=== PATIENT | female | born 1950 | race African-American/Black ===

== ENCOUNTER → 2016-06-23 16:42 | Outpatient (CLI) | payer BC ==
[2016-04-20 13:54] VITALS: BMI 44.9
[~2016-06-23 16:42] MED LIST: BENICAR20 MG PO; BENZONATATE200 MG PO; BUMEX 1 MG TAB1 MG PO; CALAN SR240 MG PO; CALCIUM 500 +1 EAC3 PO; CARAFATE1 G PO; HYDROCHLOROTHIA25 MG PO; IPRAT-ALBUT 0.5-3 ML INH; IPRAT-ALBUT 0.5-3 ML UPD; K-DUR20 MEQ PO; LEVAQUIN750 MG PO; MEDROL DOSE PACK4 MG PO; MUCINEX DM ER1 EAC1 PO; OMEPRAZOLE40 MG PO; PRILOSEC20 MG PO; PROAIR HFA8.5 GM PO; PULMICORT0.5 MG/21 INH; SINGULAIR10 MG PO; SPIRIVA18 MCG INH; SYMBICORT 16010.2 GM PO; TUSSIONEX PENN473 ML PO
== END | disposition home or self-care (01) ==
LOC: D.MAMMO 08:15
DX: Z12.31 Encounter for screening mammogram for malignant neoplasm of breast (principal)

== ENCOUNTER → 2016-06-30 10:54 | Outpatient (CLI) | payer BC ==
[2016-04-20 13:54] VITALS: BMI 44.9
== END | disposition home or self-care (01) ==
LOC: D.US 10:54
DX: N63 Unspecified lump in breast (principal)

== ENCOUNTER → 2016-07-12 06:30 | Outpatient (CLI) | payer BC ==
[2016-04-20 13:54] VITALS: BMI 44.9
== END | disposition home or self-care (01) ==
LOC: D.US 06:30
DX: N63 Unspecified lump in breast (principal)

== ENCOUNTER → 2016-08-31 08:51 | Outpatient (CLI) | payer BC ==
[2016-04-20 13:54] VITALS: BMI 44.9
--- NOTE | ~2016-08-31 | EC ---
PATIENT:TEJA MUHAMMAD DATE OF SERVICE: 08/31/16 SEX: F MEDICAL RECORD: [id number] DATE OF : 50 LOCATION:D.[facility] AGE OF PATIENT: 65 ADMISSION DATE: 08/31/16 REFERRING PHYSICIAN: INTERPRETING PHYSICIAN: GUSTAVO HERRERA M.D. ECHOCARDIOGRAM REPORT ECHO CHARGES 4 ECHO COMPLETE CLINICAL DIAGNOSIS: BREAST CANCER/PRE CHEMOTHERAPY ECHOCARDIOGRAPHIC MEASUREMENTS (adult normal given) AC root (d.<3.7cm) 3.0 LV Septum d (<1.2 cm> 1.4 Valve Excursion 2.0 LV Septum (systole) 2.0 Left Atria (s.<4.0cm> 4.2 LVPW d(<1.2cm) 1.3 RV (d.<2.3cm) 3.1 LVPW (sytole) 2.2 LV diastole(<5.6CM) 6.6 MV E-F(>70mm/sec) LV systole 3.8 LVOT Diameter 1.7 MV exc.(>10mm) Est.ejection fraction (50-75%) Pericardial Effusion N DOPPLER: LVIT A 65.0 E 48.0 LA RVSP 44.2 LVOT 120 AOP1/2T Asc. Ao 191 RVOT 65.0 RA PA 95.0 AV Gradient Peak 15.0 AV Mean 8.2 AV Area 1.4 MV Gradient Peak 3.6 MV Mean 1.1 MV Area COMMENTS: Monument Erector: Bandar FERNÁNDEZ Director Of Nurses Registry:2 Dr. Herrera TAPE# PACS DATE OF SERVICE: 08/31/2016 REFERRING PHYSICIAN: Gustavo Sanz MD INDICATION: Breast cancer, assess LV function prior to chemotherapy. DESCRIPTION: Left ventricle is mildly dilated. Left ventricular hypertrophy is present. However, systolic function is well preserved. Estimated ejection fraction is in the order 60%. Mitral valve is structurally normal. I do not see any regurgitation or prolapse. Left atrium is mildly dilated. The aortic ECHOCARDIOGRAM REPORT [id number] TEJA MUHAMMAD valve is trileaflet. There is no stenosis or regurgitation seen. Right ventricle is mildly dilated. Tricuspid valve is structurally normal. There is no regurgitation noted. Right atrium is normal in size. There is no pericardial effusion seen. IMPRESSION: 1. Left ventricular hypertrophy with preserved ejection fraction of 60%. 2. No valvular abnormalities are noted. TRANSINT:[id number] Voice Confirmation ID: [id number] DOCUMENT ID: [id number] GUSTAVO HERRERA M.D. CC: [id number] DICTATION DATE: 09/01/16729 FIELD SALES REPRESENTATIVE: 09/01/16 1329 DEP CLI 08/31/16 [place] [id number] [place] [id number]
== END | disposition home or self-care (01) ==
LOC: D.ECHO 08:51
DX: C50.919 Malignant neoplasm of unspecified site of unspecified female breast (principal)

== ENCOUNTER 2016-09-12 08:55 | Outpatient (CLI) | payer BC ==
[~2016-09-12] VITALS: Ht 172.7 cm; Wt 129.1 kg
[2016-09-12 09:37] LABS: HEMATOCRIT 42.4 % (36.0-48.0); HEMOGLOBIN 13.6 g/dL (12-16); MCH 29.6 pg (26.0-34.0); MCHC 32.1 g/dL (31.0-37.0); MCV 92.4 fL (80.0-100.0); MEAN PLATELET VOLUME 10.6 fL (7.4-10.4); PLATELET COUNT 115 10x3/uL (130-400); RBC 4.59 10x6/uL (4.00-5.40); WBC 27.6 10x3/uL (4.8-10.8)
[2016-09-12] MEDS ORDERED: ATIVAN0.5 MG PO (09:38)
[2016-09-12] MEDS ORDERED: DECADRON4 MG PO (09:39)
[2016-09-12] MEDS ORDERED: ZOFRAN ODT4 MG/UDTAB PO (09:40)
[2016-09-12 09:47] VITALS: BP 143/80; Ht 172.7 cm; Wt 129.1 kg
[2016-09-12 09:54] LABS: APTT 21.6 SECONDS (22.8-39.4); INR 1.03 (0.85-1.17); PROTIME 13.4 SECONDS (11.6-15.0)
--- NOTE | 2016-09-12 10:00 | NUR ---
#20X1 INCH POLK NEEDLE PLACED PER JAMI ROLLE RN. IV OF 1/2NS STARTED.
[2016-09-12 10:10] LABS: ANION GAP 11.8 mmol/L (8-16); CALCIUM 8.5 mg/dL (8.5-10.1); CARBON DIOXIDE 29.4 mmol/L (21.0-32.0); CREATININE - SERUM 0.9 mg/dL (0.6-1.3); POTASSIUM - SERUM 3.2 mmol/L (3.5-5.1)
[2016-09-12 10:28] LABS: EOSINOPHILS 1 % (0-7); LYMPHOCYTES 9 % (15-50); MONOCYTES 2 % (2-11); NEUTROPHILS 82 % (40-80); PLATELET ESTIMATE DECREASED
== END 2016-09-12 15:10 | disposition home or self-care (01) ==
LOC: D.OPS 08:55 → D.CT 11:00 → D.OPS 11:00 → D.CT 13:00 → D.OPS 15:10
PROVIDERS: General Practice
DX: C50.312 Malignant neoplasm of lower-inner quadrant of left female breast (principal); I10 Essential (primary) hypertension; J45.909 Unspecified asthma, uncomplicated; Z01.812 Encounter for preprocedural laboratory examination

== ENCOUNTER 2016-12-03 11:25 | Emergency (ER) | payer BC ==
[2016-09-12 09:47] VITALS: BMI 43.2
[~2016-12-03 11:25] MED LIST changes: +ATIVAN0.5 MG PO; +DECADRON4 MG PO; +ZOFRAN ODT4 MG/UDTAB PO
[2016-12-03 12:27] LABS: HEMATOCRIT 32.4 % (36.0-48.0); HEMOGLOBIN 10.7 g/dL (12-16); IMMATURE GRANULOCYTES 0.5 % (0-5); MCH 31.2 pg (26.0-34.0); MCV 94.5 fL (80.0-100.0); MEAN PLATELET VOLUME 9.4 fL (7.4-10.4); PLATELET COUNT 81 10x3/uL (130-400); RBC 3.43 10x6/uL (4.00-5.40); RDW 18.8 % (11.5-14.5); WBC 2.2 10x3/uL (4.8-10.8)
[2016-12-03 12:37] LABS: ALBUMIN 3.5 g/dL (3.4-5.0); ALKALINE PHOSPHATASE 56 U/L (46-116); ALT (SGPT) 29 U/L (10-68); BILIRUBIN - TOTAL 0.91 mg/dL (0.2-1.3); CALC OSMOLALITY 279 mosm/kg (275-300); CARBON DIOXIDE 27.8 mmol/L (21.0-32.0); CHLORIDE - SERUM 106 mmol/L (98-107); CREATININE - SERUM 0.8 mg/dL (0.6-1.3); GLUCOSE 84 mg/dL (74-106); POTASSIUM - SERUM 3.8 mmol/L (3.5-5.1); PROTEIN - SERUM 6.3 g/dL (6.4-8.2); SODIUM 139 mmol/L (136-145); UREA NITROGEN 20 mg/dL (7-18); eGFR NON AFRICAN AMERICAN 76 mL/min (90-120)
[2016-12-03 12:43] LABS: MAGNESIUM - SERUM 1.9 mg/dL (1.8-2.4); PRO BNP 113 pg/mL (0-125)
[2016-12-03 12:46] LABS: BASOPHILS 1 % (0-2); LYMPHOCYTES 26 % (15-50); MONOCYTES 1 % (2-11); NEUTROPHILS 72 % (40-80); PLATELET ESTIMATE DECREASED
== END 2016-12-03 13:55 | disposition home or self-care (01) ==
LOC: D.ER 11:25
PROVIDERS: Emergency Medicine
DX: R53.1 Weakness (principal); J45.909 Unspecified asthma, uncomplicated; C50.919 Malignant neoplasm of unspecified site of unspecified female breast; R19.7 Diarrhea, unspecified

== ENCOUNTER 2017-02-15 03:55 | Emergency (ER) | payer BC ==
[2016-09-12 09:47] VITALS: BMI 43.2
[2017-02-15 04:27] LABS: BASOPHILS 0.2 % (0-2); EOSINOPHILS 0 % (0-7); HEMATOCRIT 35.7 % (36.0-48.0); HEMOGLOBIN 11.8 g/dL (12-16); IMMATURE GRANULOCYTES 2.6 % (0-5); MCH 33.5 pg (26.0-34.0); MCHC 33.1 g/dL (31.0-37.0); MCV 101.4 fL (80.0-100.0); MEAN PLATELET VOLUME 9.4 fL (7.4-10.4); MONOCYTES 13.4 % (2-11); NEUTROPHILS 72.8 % (40-80); PLATELET COUNT 111 10x3/uL (130-400); RBC 3.52 10x6/uL (4.00-5.40); RDW 14.8 % (11.5-14.5); WBC 4.6 10x3/uL (4.8-10.8)
[2017-02-15 04:40] LABS: ALBUMIN 3.4 g/dL (3.4-5.0); ANION GAP 13.9 mmol/L (8-16); BILIRUBIN - TOTAL 0.9 mg/dL (0.2-1.3); CALCIUM 8.9 mg/dL (8.5-10.1); CARBON DIOXIDE 26.8 mmol/L (21.0-32.0); CREATININE - SERUM 1.2 mg/dL (0.6-1.3); MAGNESIUM - SERUM 1.2 mg/dL (1.8-2.4); POTASSIUM - SERUM 3.7 mmol/L (3.5-5.1); PROTEIN - SERUM 6.4 g/dL (6.4-8.2)
[2017-02-15 05:04] LABS: TROPONIN-I 0.055 ng/mL (0.000-0.060)
[2017-02-15 06:28] LABS: APPEARANCE CLEAR (CLEAR); BACTERIA FEW /hpf (NONE SEEN); BILIRUBIN NEGATIVE (NEGATIVE); COLOR YELLOW (YELLOW); EPITHELIAL CELLS 0-5 /hpf (0-5); GLUCOSE NEGATIVE (NEGATIVE); KETONE NEGATIVE (NEGATIVE); MUCUS <1+ /lpf (NONE SEEN); NITRITE NEGATIVE (NEGATIVE); PROTEIN NEGATIVE (NEGATIVE); RED CELLS - URINE RARE /hpf (0-5); SPECIFIC GRAVITY 1.005 (1.005-1.020)
== END 2017-02-15 09:25 | disposition home or self-care (01) ==
LOC: D.ER 03:55
PROVIDERS: Emergency Medicine
DX: R53.1 Weakness (principal); C50.912 Malignant neoplasm of unspecified site of left female breast; E83.42 Hypomagnesemia

== ENCOUNTER → 2017-02-17 10:52 | Outpatient (CLI) | payer BC ==
[2016-09-12 09:47] VITALS: BMI 43.2
[~2017-02-17 10:52] MED LIST changes: +[UNRECOGNIZED DRUG - OTHER]
== END | disposition home or self-care (01) ==
LOC: D.MRI 10:52
DX: C50.312 Malignant neoplasm of lower-inner quadrant of left female breast (principal)

== ENCOUNTER → 2017-02-20 09:07 | Outpatient (CLI) | payer BC ==
[2016-09-12 09:47] VITALS: BMI 43.2
== END | disposition home or self-care (01) ==
LOC: D.US 09:07
DX: R22.41 Localized swelling, mass and lump, right lower limb (principal); M79.604 Pain in right leg

== ENCOUNTER 2017-03-27 07:08 | Day surgery (SDC) | payer BC ==
[~2017-03-27] VITALS: Ht 172.7 cm; Wt 119.1 kg
[~2017-03-27 07:08] MED LIST changes: -[UNRECOGNIZED DRUG - OTHER]
[2017-03-27 07:57] LABS: ANION GAP 11.7 mmol/L (8-16); CALCIUM 8.4 mg/dL (8.5-10.1); CARBON DIOXIDE 26.6 mmol/L (21.0-32.0); CREATININE - SERUM 0.9 mg/dL (0.6-1.3); POTASSIUM - SERUM 3.3 mmol/L (3.5-5.1)
[2017-03-27] MEDS ORDERED: [UNRECOGNIZED DRUG - OTHER] (08:03)
[2017-03-27 08:10] LABS: HEMATOCRIT 37.9 % (36.0-48.0); HEMOGLOBIN 12.5 g/dL (12-16); MCH 32.6 pg (26.0-34.0); MEAN PLATELET VOLUME 9.7 fL (7.4-10.4); RBC 3.83 10x6/uL (4.00-5.40); RDW 15.8 % (11.5-14.5)
[2017-03-27 08:12] VITALS: BP 140/83; Ht 172.7 cm; Wt 119.1 kg
--- NOTE | 2017-03-27 09:35 | NUR ---
PT REC'D TO ROOM VIA STRETCHER. AWAKE, ALERT, ORIENTED.
--- NOTE | 2017-03-27 09:49 | NUR ---
TOLERATING FULL LIQUIDS.
--- NOTE | 2017-03-27 10:05 | NUR ---
IV D/C'D CATH INTACT.
--- NOTE | 2017-03-27 10:14 | NUR ---
D/C INSTRUCTIONS EXPLAINED TO PT. VOICED UNDERSTANDING. COPIES OF ALL GIVEN TO PT.
--- NOTE | 2017-03-27 10:20 | NUR ---
D/C'D HOME VIA W/C TO PRIVATE CAR.
--- NOTE | 2017-03-27 13:28 | OP ---
PATIENT NAME: TEJA MUHAMMAD MEDICAL RECORD: [id number] :50 LOCATION:[facility] ADMISSION DATE: SURGEON: SHELLI HERNANDEZ DO DATE OF OPERATION: 03/27/2017 PROCEDURE: Colonoscopy with polypectomy. INDICATIONS FOR PROCEDURE: Colon cancer screening. SCOPE: Olympus video pediatric colonoscope. MEDICATIONS: Propofol 450 mg IV per anesthesia. WITHDRAWAL TIME: 14 minutes. ESTIMATED BLOOD LOSS: Minimal. COMPLICATIONS: None. FINDINGS: Informed consent was given. The patient was made comfortable with the above medication. After reaching an adequate level of sedation by slow IV push, the patient was placed on her left side. A digital rectal examination was performed and was normal. The endoscope was then advanced under direct visualization through the rectum to the terminal ileum. The scope was slowly withdrawn and the mucosa was carefully examined. There was evidence of mild diverticulosis mainly involving the sigmoid and descending colon with a few scattered diverticula noted throughout the entire colon. There were 2 polyps visualized on today's examination. The first was located in the cecum. It measured approximately 2-3 mm in diameter and was removed using a hot forceps completely in 1 piece. The second polyp was located in the descending colon. It was benign appearing sessile polyp measuring approximately 4 mm in diameter. It was removed using a hot forceps in 1 piece and completely retrieved. Retroflexion was performed in the rectum with a normal appearing rectal wall. The endoscope was then withdrawn from the patient. The patient tolerated the procedure well and there were no complications. IMPRESSION: 1. Two polyps as described above removed using hot forceps. 2. Mild diverticulosis. PLAN AND RECOMMENDATIONS: 1. Discharge home when recovery parameters are met. 2. High fiber diet. 3. Continue current medications. 4. Recall colonoscopy in 5 years for continued surveillance and colorectal cancer screening. TRANSINT:[id number] Voice Confirmation ID: [id number] DOCUMENT ID: [id number] OPERATIVE REPORT [id number] TEJA MUHAMMAD SHELLI HERNANDEZ DO at 1328 CC: [id number] DICTATION DATE: 03/27/17 0924 ASSET CARD CLERK: 03/27/[address] [facility] 03/27/17 [place] [address]
== END 2017-03-27 10:20 | disposition home or self-care (01) ==
LOC: D.OPS 07:08
PROVIDERS: Anesthesiology
DX: Z12.11 Encounter for screening for malignant neoplasm of colon (principal); K63.5 Polyp of colon; J45.909 Unspecified asthma, uncomplicated; I10 Essential (primary) hypertension; K21.9 Gastro-esophageal reflux disease without esophagitis; E66.9 Obesity, unspecified; Z01.812 Encounter for preprocedural laboratory examination

== ENCOUNTER 2017-07-24 05:20 | Inpatient (IN) | payer BC ==
[~2017-07-24] VITALS: Ht 172.7 cm; Wt 122.5 kg
--- NOTE | ~2017-07-24 | HP ---
PATIENT: TEJA MUHAMMAD MEDICAL RECORD: [id number] ACCOUNT: [id number] LOCATION:D.[facility] : 50 ADMISSION DATE: 07/24/17 HISTORY AND PHYSICAL EXAMINATION REASON FOR ADMISSION: Left facial pain and swelling. HISTORY OF PRESENT ILLNESS: The patient is a 66-year-old -[place]ymra[place] female who developed onset of rapid left facial swelling and pain last evening. She states that she has had tender tooth on the left maxillary for about a year. She had put off having it removed due to chemotherapy for breast cancer. She has been a little more sore recently, was worse yesterday and then last night, she developed discomfort and pain. She refused to come to the hospital initially, but her daughter brought her to this morning. She denies fever, nausea, or vomiting. 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 First line chemo was Adriamycin and Cytoxan from August through October of 2016, 3-4 cycles, treatment changed to cisplatin and Gemzar. She states she was due to have a PET scan and chemotherapy today. PAST MEDICAL HISTORY: Essential hypertension, asthma, remote history of pneumonia in 2014. Schatzki's ring status post esophageal balloon dilatation, sliding hiatal hernia, gastritis in 2016. PAST SURGICAL HISTORY: She has had a tonsillectomy and adenoidectomy, tubal ligation, left breast biopsy. ALLERGIES: SULFA. ALCOHOL HISTORY: Negative. 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 HOME MEDICATIONS: Verapamil SR 240 a day, Benicar 20 mg a day, Prilosec 40 mg p.o. daily, calcium carbonate with vitamin D 500 mg daily, Micro-K 10 mEq b.i.d., Singulair 10 mg with evening meal, Ativan 1 mg h.s. p.r.n. anxiety, Symbicort 160 mg two puffs b.i.d., DuoNeb updrafts q.4 hours, MiraLAX 17 grams p.o. daily, Ventolin HFA 4 puffs q.4-6 hours p.r.n. breakthrough wheezing. FAMILY HISTORY: Noncontributory. REVIEW OF SYSTEMS: GENERAL: No fever, fatigue, or weight change. HEENT: No recent visual change, sinus congestion. She has had marked onset of left cheek and facial edema in the last 12 hours. She has chronic tenderness in the left upper proximal molar 1 and admits to dental caries. Denies hearing difficulty. RESPIRATORY: No severe cough recently, has chronic wheezing, but stable currently. CARDIAC: No exertional chest pain, claudication, or edema. GASTROINTESTINAL: No nausea, vomiting, solid food dysphagia. ENDOCRINE: Denies polyuria, polydipsia, heat or cold intolerance. HISTORY AND PHYSICAL [id number] TEJA MUHAMMAD NEUROLOGIC: No history of stroke, TIA, or vascular headaches. INTEGUMENT: No rash or itching. PSYCHIATRIC: Denies depressed mood. PHYSICAL EXAMINATION: GENERAL: Alert female, in no acute distress with obvious facial edema. VITAL SIGNS: Temperature 99.2 Fahrenheit orally, pulse 86 and regular, respirations 20, blood pressure 145/109 with a sat of 98% on room air. HEENT: Normocephalic. Eyes are clear, but she has left periorbital edema minimally affecting her vision. She has marked left zygomatic and basilar facial edema, nontender to touch. Slightly warm. She has adenopathy in her left anterior cervical triangle, palpable and nontender. Oropharynx exam reveals a carious left anterior maxilla #1 with surrounding gingival erythema. No obvious pustular drainage. CHEST: Clear with faint wheezes on forced expiration. HEART: Regular rate. BREAST: Not examined. ABDOMEN: Soft, mildly obese, nontender. GENITOURINARY: Deferred. EXTREMITIES: No gross CCE. NEUROLOGICAL: Oriented to person, place, and time. Cranial nerves intact. Gait was not tested. No motor or sensory deficits are appreciated grossly. LABORATORY DATA: Shows white count of 8600, H&H of 9.8 and 30.0 respectively, MCV is 104, platelets 155,000 with normal shift. Electrolytes are normal. BUN slightly elevated at 21. Liver functions are normal. CT of the face and facial bones reveals soft tissue cellulitis of the left face extending from the mandible, anterior maxilla to the left periorbital, and preseptal soft tissue areas without evidence of air fluid collection or abscess. She has left level 2 adenopathy with enlarged anterior cervical triangle lymph nodes with some necrosis. ASSESSMENT: 1. Left facial abscess, possibly due to dental caries. 2. 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 3. History of asthma. 4. Hypertension. 5. Anemia of chronic disease. PLAN: Place the patient on IV fluid. She has been cultured in the ER. Place on clindamycin. Add Rocephin. Dr. Rivas has reviewed her CT scan and says nothing from ENT needs to be offered at this time except antibiotics. Dr. Sarah will be consulted as well. Further workup pending clinical course. We will hold Byronr currently on the outside chance she has some angioedema from it and use other medicines for blood pressure control. TRANSINT:[id number] Voice Confirmation ID: [id number] DOCUMENT ID: [id number] HISTORY AND PHYSICAL [id number] TEJA MUHAMMAD TIMOTHY MD at 1751 CC: [id number] DICTATION DATE: 07/24/17 1418 ESTIMATOR AND DRAFTER SUPERVISOR: 07/24/17 1701 ADM IN [facility] [address] [place] [id number]
[~2017-07-24 05:20] MED LIST changes: +[UNRECOGNIZED DRUG - OTHER]
[2017-07-24 06:08] LABS: BASOPHILS 0.2 % (0-2); EOSINOPHILS 0.6 % (0-7); HEMOGLOBIN 9.8 g/dL (12-16); IMMATURE GRANULOCYTES 1.6 % (0-5); LYMPHOCYTES 10.2 % (15-50); MCHC 32.7 g/dL (31.0-37.0); MCV 104.2 fL (80.0-100.0); MEAN PLATELET VOLUME 9.4 fL (7.4-10.4); MONOCYTES 19.3 % (2-11); NEUTROPHILS 68.1 % (40-80); PLATELET COUNT 155 10x3/uL (130-400); RBC 2.88 10x6/uL (4.00-5.40); RDW 18.9 % (11.5-14.5); WBC 8.6 10x3/uL (4.8-10.8)
[2017-07-24 06:22] LABS: ALBUMIN 3.4 g/dL (3.4-5.0); ANION GAP 11.7 mmol/L (8-16); BILIRUBIN - TOTAL 0.78 mg/dL (0.2-1.3); C-REACTIVE PROTEIN 0.9 mg/dL (0.0-0.9); CALCIUM 8.3 mg/dL (8.5-10.1); CARBON DIOXIDE 26.1 mmol/L (21.0-32.0); CREATININE - SERUM 1.1 mg/dL (0.6-1.3); POTASSIUM - SERUM 3.8 mmol/L (3.5-5.1); PROTEIN - SERUM 6.3 g/dL (6.4-8.2)
[2017-07-24] MEDS ORDERED: MIRALAX527 GM PO (11:02)
[2017-07-24 12:03] VITALS: BP 150/81; Ht 172.7 cm; Wt 122.5 kg
[2017-07-24 13:21] VITALS: BP 134/73
[2017-07-24 16:32] VITALS: BP 154/86
[2017-07-24 19:06] LABS: APPEARANCE CLEAR (CLEAR); BILIRUBIN NEGATIVE (NEGATIVE); COLOR YELLOW (YELLOW); GLUCOSE NEGATIVE (NEGATIVE); KETONE NEGATIVE (NEGATIVE); NITRITE NEGATIVE (NEGATIVE); PROTEIN NEGATIVE (NEGATIVE); UROBILINOGEN NORMAL (NORMAL)
[2017-07-24 20:00] VITALS: BP 127/64
[2017-07-25] VITALS: BP 156/84
[2017-07-25 04:00] VITALS: BP 142/78
[2017-07-25 06:02] LABS: BASOPHILS 0.3 % (0-2); EOSINOPHILS 0.8 % (0-7); HEMOGLOBIN 9.7 g/dL (12-16); IMMATURE GRANULOCYTES 3.7 % (0-5); LYMPHOCYTES 15.3 % (15-50); MCH 33.6 pg (26.0-34.0); MCHC 32.3 g/dL (31.0-37.0); MCV 103.8 fL (80.0-100.0); MEAN PLATELET VOLUME 9.6 fL (7.4-10.4); MONOCYTES 17.6 % (2-11); NEUTROPHILS 62.3 % (40-80); PLATELET COUNT 165 10x3/uL (130-400); RBC 2.89 10x6/uL (4.00-5.40); RDW 18.3 % (11.5-14.5); WBC 6.5 10x3/uL (4.8-10.8)
[2017-07-25 06:14] LABS: ANION GAP 11.7 mmol/L (8-16); CALCIUM 7.9 mg/dL (8.5-10.1); CARBON DIOXIDE 26.1 mmol/L (21.0-32.0); CREATININE - SERUM 1.1 mg/dL (0.6-1.3); POTASSIUM - SERUM 3.8 mmol/L (3.5-5.1)
[2017-07-25 08:11] VITALS: BP 128/63
[2017-07-25 12:31] VITALS: BP 126/58
[2017-07-25 16:09] VITALS: BP 131/75
[2017-07-25 20:00] VITALS: BP 149/85
[2017-07-26 04:00] VITALS: BP 181/81
[2017-07-26] MEDS ORDERED: CLEOCIN HCL300 MG PO (06:55)
[2017-07-26] MEDS ORDERED: TRAMADOL HCL E100 M1 PO (06:56)
[2017-07-26 08:07] VITALS: BP 128/46
== END 2017-07-26 13:13 | disposition home or self-care (01) | DRG 603 ==
LOC: D.ER 05:20 → D.EDHOLD 08:42 → D.MS 08:42
PROVIDERS: Family Medicine
DX: L03.211 Cellulitis of face (principal); C79.9 Secondary malignant neoplasm of unspecified site; K02.9 Dental caries, unspecified; I10 Essential (primary) hypertension; D63.8 Anemia in other chronic diseases classified elsewhere; J45.909 Unspecified asthma, uncomplicated; C50.919 Malignant neoplasm of unspecified site of unspecified female breast

== ENCOUNTER → 2017-07-28 09:20 | Outpatient (CLI) | payer BC ==
[~2017-07-28 09:20] MED LIST changes: +CLEOCIN HCL300 MG PO; +MIRALAX527 GM PO; +NEURONTIN 300300 MG PO; +TRAMADOL HCL E100 M1 PO
[2017-07-30 18:07] LABS: C-TELOPEPTIDE (SERUM) 111 pg/mL (())
== END | disposition home or self-care (01) ==
LOC: D.LAB 09:20
PROVIDERS: Nurse Practitioner Family
DX: M18.0 Bilateral primary osteoarthritis of first carpometacarpal joints (principal)

== ENCOUNTER 2017-08-08 14:13 | Outpatient (CLI) | payer BC ==
[~2017-08-08 14:13] MED LIST changes: -NEURONTIN 300300 MG PO
== END 2017-08-08 14:14 | disposition home or self-care (01) ==
LOC: D.MAMMO 14:13
DX: C50.312 Malignant neoplasm of lower-inner quadrant of left female breast (principal); C79.51 Secondary malignant neoplasm of bone; C77.1 Secondary and unspecified malignant neoplasm of intrathoracic lymph nodes

== ENCOUNTER → 2017-08-09 10:12 | Outpatient (CLI) | payer BC ==
[~2017-08-09 10:12] MED LIST changes: +NEURONTIN 300300 MG PO
== END | disposition home or self-care (01) ==
LOC: D.MRI 10:12
DX: M25.551 Pain in right hip (principal)

== ENCOUNTER → 2017-09-04 10:21 | Outpatient (CLI) | payer BC | END | disposition home or self-care (01) | LOC: D.CT 09:00 | DX: C50.312 Malignant neoplasm of lower-inner quadrant of left female breast (principal) ==

== ENCOUNTER 2017-09-06 07:38 | Inpatient (IN) | payer BC ==
[~2017-09-06] VITALS: Ht 172.7 cm; Wt 111.7 kg
--- NOTE | ~2017-09-06 | CN ---
PATIENT NAME:TEJA ROSS MEDICAL RECORD: [id number] : 50 LOCATION:D[facility] ADMIT DATE: 09/06/17 ACCOUNT: [id number] CONSULTING PHYSICIAN: JAIDEN CRAIG MD REFERRING PHYSICIAN: GUSTAVO SANZ MD DATE OF CONSULTATION: 09/06/2017 CONSULT REQUESTING PHYSICIAN: Dr. Gustavo Sanz REASON FOR CONSULTATION: Acute exacerbation of asthma, pneumonia - right middle lobe. HISTORY OF PRESENT ILLNESS: Ms. Ross is a 66-year-old -Algerian female who was having history of CA of the breast. Now, she has metastasis to the lung and mediastinum. The patient has worsening shortness of breath for the last 4-5 days. She was started on home oxygen. She was given steroid injection without much improvement. She has CTA of the chest, which did not show any PE, but it did show pneumonia with air bronchograms in the right middle lobe. It seems that the patient had chemotherapy on Monday for recurrent and metastatic CA of the breast. REVIEW OF SYSTEMS: Mainly in the history of present illness. PAST MEDICAL HISTORY: 1. Asthma. 2. Cancer of the breast, stage IV. 3. Pneumonia in 2014. 4. She has Schatzki ring, status post esophageal balloon dilatation, sliding hiatal hernia. PAST SURGICAL HISTORY: 1. Tonsillectomy and adenoidectomy. 2. Tubal ligation. 3. Left breast biopsy. 3. Gastritis in 2016. ALLERGIES: SHE IS ALLERGIC TO SULFA. PRESENT MEDICATIONS: [employer] is reviewed. PERSONAL AND SOCIAL HISTORY: She is an RN, nonsmoker, nondrinker. FAMILY HISTORY: Noncontributory. PHYSICAL EXAMINATION: GENERAL: The patient is lying comfortably in bed. She is not in acute distress. VITAL SIGNS: The blood pressure is 116/70, pulse is 89, respirations 22, temperature 99.1, SPO2 is 96% on 7 liters nasal cannula. HEENT: Conjunctivae are pink. Sclerae are not icteric. NECK: Supple, no JVD. CHEST: Excursion is minimal on both sides. There is a prolonged expiration with wheezing. There is a crackle anteriorly in the right mid lung base. HEART: Rate and rhythm regular, normal sound, no murmur. ABDOMEN: Soft, bowel sounds present. No hepatosplenomegaly. CONSULT REPORT [id number] TEJA ROSS RECTAL: Deferred. EXTREMITIES: No cyanosis, no clubbing, no pedal edema. SKIN: Warm, normal turgor. CENTRAL NERVOUS SYSTEM: The patient is awake and alert. There are no obvious intracranial abnormality. The gait was not tested. LABORATORY DATA: CBC: The WBC is 24.1, hemoglobin 12.1, hematocrit 35.8, the platelet count 59. Chemistry: Sodium 141, potassium is 3.7, BUN is 28, creatinine 1.2. ABG: The pH is 7.47, pCO2 is ____, the pO2 is 49, bicarbonate is 19.8. Lactic acid level is 1.25. CTA Of The Chest: There are multiple pulmonary nodules and there is mediastinal lymphadenopathy. There is a 4.9 x 4.7 cm retrosternal soft tissue density. There is an infiltrate with air bronchogram in the right middle lobe. IMPRESSION: 1. Acute hypoxic respiratory failure. 2. Pneumonia, right middle lobe, most likely community-acquired pneumonia. The patient is on chemotherapy, but she is not neutropenic. 3. Acute exacerbation of asthma. 4. Leukocytosis secondary to pneumonia. 5. Stage IV cancer of the breasts with metastases to the lung and mediastinum. The patient is on chemotherapy. 6. Mild pulmonary hypertension with right ventricular systolic pressure of 44. 7. Thrombocytopenia. RECOMMENDATIONS: 1. Continue vancomycin and meropenem. I will add Levaquin to double cover for gram negatives. 2. Supplemental oxygen. 3. Albuterol/ipratropium nebulizer. Start Brovana/budesonide nebulizer. Start methylprednisolone IV, followup labs with chest radiographs. 4. If the patient's pneumonia is getting worse, we will consider bronchoscopy. Dr. Sanz thank you for involving me in the care of Ms. Ross. TRANSINT:[id number] Voice Confirmation ID: [id number] DOCUMENT ID: [id number] JAIDEN CRAIG MD CC: GUSTAVO SANZ [id number] DICTATION DATE: 09/06/171628 LEAD GENERATOR: 09/06/172245 ADM IN [facility] [address] [place] [address]
--- NOTE | ~2017-09-06 | HP ---
PATIENT: TEJA MUHAMMAD MEDICAL RECORD: [id number] ACCOUNT: [id number] LOCATION:[facility] D.2309 : 50 ADMISSION DATE: 09/06/17 HISTORY AND PHYSICAL EXAMINATION REASON FOR ADMISSION: Shortness of breath. HISTORY OF PRESENT ILLNESS: The patient is a 66-year-old -Burmese female with history of asthma. She had been on a new chemo regimen per Dr. Sarah recently. She said she had a treatment 3 days prior to admission, had increasing cough and shortness of breath. Cough was nonproductive. She said she was not wheezing like she normally does with her asthma. She denied fever. Because of her symptoms, Dr. Sarah performed a CT scan 2 days ago that did not show any new active disease. She saw Dr. Gutierrez yesterday. He reviewed her CT scan and could not find another reason for her symptoms and thought she might need an echo. She became more short of breath last evening, did 4 updrafts without improvement and sat did not get over 80%. She came to the Emergency Room. She denies sputum production or fever or recent antibiotic therapy. PAST MEDICAL HISTORY: Extrinsic asthma, recent left gingival abscess resolved postoperative, essential hypertension, history of pneumonia in 2014, Schatzki's rings post-dilatation of the esophagus, sliding hiatal hernia, gastritis, history of T2 N3 M1 grade III triple negative left-sided breast cancer with metastatic metaplastic features, status post left local lumpectomy July 2016 with most recent PET scan showing metastatic disease including the cervical and supraclavicular lymphadenopathy and bone metastases at L3 and left ilium. She was treated initially with Adriamycin, Cytoxan until October of 2016 and then changed to cisplatin and Gemzar. Her new chemotherapy started recently. PAST SURGICAL HISTORY: Tonsillectomy, adenoidectomy, tubal ligation, left breast lumpectomy, and multiple tooth extractions July of 2017. ALLERGIES: SULFA. CURRENT MEDICATIONS: DuoNeb q.4-6 hours, Symbicort 160 two puffs daily, ProAir 2 puffs every 4 hours as needed, Singulair 10 mg with evening meal, Flonase nasal spray 2 sprays to each nostril daily, Astelin nasal spray 2 sprays each nostril twice a day, Mucinex DM b.i.d., Nexium 40 mg a day, verapamil 240 mg a day, Benicar 20 mg a day, calcium carbonate with vitamin D 500 mg a day, Micro-K 10 mEq b.i.d., MiraLax 17 grams p.o. daily. She had recently been on Medrol Dosepak 08/30/2017. FAMILY HISTORY: Noncontributory. REVIEW OF SYSTEMS: GENERAL: She has been fatigued with poor appetite. No fever. HEENT: No recent new visual change, sinus congestion, sore throat, or gum abnormality. RESPIRATORY: Increased shortness of breath at rest or with exertion, not responding to updraft therapy. Minimal wheezing. No sputum production or hemoptysis. CARDIAC: OJEDA, but no exertional rest chest pain. GASTROINTESTINAL: No nausea, vomiting, or history of blood per rectum. GENITOURINARY: No incontinence. GYNECOLOGIC: No vaginal bleeding. HISTORY AND PHYSICAL [id number] TEJA MUHAMMAD MUSCULOSKELETAL: Has lumbago without sciatica. PSYCHIATRIC: Denies depressed mood. PHYSICAL EXAMINATION: VITAL SIGNS: Temperature is 97.1 axillary, pulse of 105 and regular, respirations 24, blood pressure 111/79, O2 sat was 90% on 3 liters. Weight is 240 pounds, 108 kilos, height 5 feet 8 inches. GENERAL: The patient is alert and oriented at this time. Mildly dyspneic. HEENT: Eyes are clear. Face is unremarkable. NECK: Supple, without bruits or JVD. CHEST: She has faint wheeze in the upper lobes without rales, no retractions. HEART: Tachycardic without murmur. ABDOMEN: Soft, mildly obese, nontender. EXTREMITIES: 1+ bipedal edema. NEUROLOGIC: Oriented to person, place, and time. Cranial nerves intact. Gait was not tested. LABORATORY DATA: White count of 24,000, H&H of 12 and 35.8, platelet count is 59,000. BMP is normal except for BUN of 28. Lactic acid normal at 1.3. Liver functions are normal. ProBNP is 794. ABG: pH of 7.47, CO2 is 27, pO2 was 49. CT Chest PE protocol was obtained because of high D-dimer, it showed no pulmonary emboli, focal consolidation on the portion of the right middle lobe of the lung with air bronchograms, significant mediastinal lymphadenopathy, soft tissue mass. Stable left axilla measuring 3.9 cm, pleural based mass in the lingula and soft tissue mass adjacent to the esophagus within 3 cm. ASSESSMENT: Right middle lobe pneumonia, hospital-acquired, hypoxemia, history of asthma, respiratory failure, stage IV carcinoma of the breast on chemotherapy, leukocytosis, thrombocytopenia, hypertension, GERD. PLAN: The patient is admitted for broad-spectrum IV antibiotics and pulmonary consult. Further workup to follow. TRANSINT:[id number] Voice Confirmation ID: [id number] DOCUMENT ID: [id number] DAYANA JARA MD at 0716 CC: [id number] DICTATION DATE: 09/06/17 1334 WOOL GROWER: 09/06/17 1414 ADM IN [place] [id number] [place] [id number]
--- NOTE | ~2017-09-06 | EC ---
PATIENT:TEJA MUHAMMAD DATE OF SERVICE: 09/06/17 SEX: F MEDICAL RECORD: [id number] DATE OF : 50 LOCATION:D.[facility] D.230 AGE OF PATIENT: 66 ADMISSION DATE: 09/06/17 REFERRING PHYSICIAN: INTERPRETING PHYSICIAN: ELMIRA KING MD ECHOCARDIOGRAM REPORT ECHO CHARGES 4 ECHO COMPLETE Date: 09/06 CLINICAL DIAGNOSIS: SOB ECHOCARDIOGRAPHIC MEASUREMENTS (adult normal given) AC root (d.<3.7cm) 2.8 cm LV Septum d (<1.2 cm> 1.4 cm Valve Excursion 1.9 cm LV Septum (systole) 2.0 cm Left Atria (s.<4.0cm> 3.4 cm LVPW d(<1.2cm) 1.3 cm RV (d.<2.3cm) 3.1 cm LVPW (sytole) 2.1 cm LV diastole(<5.6CM) 4.5 cm MV E-F(>70mm/sec) cm LV systole 1.8 cm LVOT Diameter 1.9 cm MV exc.(>10mm) cm Est.ejection fraction (50-75%) % DOPPLER: LVIT cm/sec A 79.0 cm/sec E 49.0 cm/sec LA cm/sec RVSP 84.0 mmHg LVOT 121 cm/sec AOP1/2T m/s Asc. Ao 198 cm/sec RVOT 87.0 cm/sec RA cm/sec PA 113 cm/sec AV Gradient Peak 16.0 mmHg AV Mean 5.4 mmHg AV Area 2.4 cm MV Gradient Peak 4.3 mmHg MV Mean 1.6 mmHg MV Area cm COMMENTS: Clerical Support Specialist: Bandar FERNÁNDEZ Film Waxer: 1 Dr. King TAPE# PACS Pericardial Effusion N DATE OF SERVICE: 09/06/2017 PROCEDURE: Echocardiogram. FINDINGS: 1. Left ventricular chamber size is within normal limits. Left ventricular systolic function is normal. Overall ejection fraction estimated at 60%. 1. Left atrium, right atrium, and right ventricle chamber sizes are within normal limits. 2. Valvular structures have normal structure and motion. ECHOCARDIOGRAM REPORT [id number] TEJA MUHAMMAD 3. Doppler interrogation reveals moderate to severe tricuspid regurgitation, no other valvular insufficiency or stenosis; however, pulmonary systolic pressure is markedly elevated, estimated at 84 mmHg. 4. No evidence of pericardial effusion or left ventricular thrombus. TRANSINT:[id number] Voice Confirmation ID: [id number] DOCUMENT ID: [id number] ELMIRA KING MD at 1444 CC: DAYANA JARA [id number] DICTATION DATE: 09/06/17 1555 INTERNET APPLICATION DEVELOPER: 09/06/17 1656 ADM IN [place] [id number] [place] [id number]
[~2017-09-06 07:38] MED LIST changes: -NEURONTIN 300300 MG PO
[2017-09-06 09:13] LABS: ALBUMIN 3.1 g/dL (3.4-5.0); ANION GAP 14.5 mmol/L (8-16); BILIRUBIN - TOTAL 1.3 mg/dL (0.2-1.3); CALCIUM 8.4 mg/dL (8.5-10.1); CARBON DIOXIDE 23.2 mmol/L (21.0-32.0); CREATININE - SERUM 1.2 mg/dL (0.6-1.3); POTASSIUM - SERUM 3.7 mmol/L (3.5-5.1); PROTEIN - SERUM 5.9 g/dL (6.4-8.2)
[2017-09-06 09:20] LABS: HEMATOCRIT 35.8 % (36.0-48.0); HEMOGLOBIN 12.1 g/dL (12-16); MCH 32.4 pg (26.0-34.0); MCHC 33.8 g/dL (31.0-37.0); MCV 95.7 fL (80.0-100.0); PLATELET COUNT 59 10x3/uL (130-400); RBC 3.74 10x6/uL (4.00-5.40); RDW 15.2 % (11.5-14.5); WBC 24.1 10x3/uL (4.8-10.8)
[2017-09-06 09:32] LABS: TROPONIN-I 0.059 ng/mL (0.000-0.060)
[2017-09-06 10:12] LABS: ANISOCYTOSIS OCC; EOSINOPHILS 2 % (0-7); LYMPHOCYTES 10 % (15-50); NEUTROPHILS 82 % (40-80); PLATELET ESTIMATE DECREASED
[2017-09-06] MEDS ORDERED: NEURONTIN 300300 MG PO (14:29)
[2017-09-06 15:26] VITALS: BP 116/70; BMI 36.5
[2017-09-06 20:15] VITALS: BP 133/88
[2017-09-07 01:48] VITALS: BP 133/84
[2017-09-07 04:53] VITALS: BP 138/84
[2017-09-07 06:15] LABS: ANION GAP 15.1 mmol/L (8-16); CALCIUM 8.2 mg/dL (8.5-10.1); CARBON DIOXIDE 22.2 mmol/L (21.0-32.0); POTASSIUM - SERUM 4.3 mmol/L (3.5-5.1)
[2017-09-07 06:33] LABS: BASOPHILS 0.2 % (0-2); EOSINOPHILS 0 % (0-7); HEMATOCRIT 34.2 % (36.0-48.0); HEMOGLOBIN 11.5 g/dL (12-16); IMMATURE GRANULOCYTES 3.8 % (0-5); LYMPHOCYTES 1.1 % (15-50); MCH 32.2 pg (26.0-34.0); MCHC 33.6 g/dL (31.0-37.0); MCV 95.8 fL (80.0-100.0); MEAN PLATELET VOLUME 12.1 fL (7.4-10.4); MONOCYTES 1.1 % (2-11); NEUTROPHILS 93.8 % (40-80); RBC 3.57 10x6/uL (4.00-5.40); RDW 15.4 % (11.5-14.5); WBC 35.7 10x3/uL (4.8-10.8)
[2017-09-07 06:40] LABS: PLATELET COUNT 49 10x3/uL (130-400)
[2017-09-07 08:32] VITALS: BP 147/95
[2017-09-07 09:46] VITALS: BMI 36.4
[2017-09-07 12:30] VITALS: BP 114/64
[2017-09-07 16:26] VITALS: BP 111/66
[2017-09-07 22:29] VITALS: BP 128/62
[2017-09-08 04:53] VITALS: BP 111/72
[2017-09-08 06:09] LABS: BASOPHILS 0.8 % (0-2); EOSINOPHILS 0.1 % (0-7); HEMATOCRIT 35.4 % (36.0-48.0); HEMOGLOBIN 11.8 g/dL (12-16); IMMATURE GRANULOCYTES 11.1 % (0-5); LYMPHOCYTES 1.1 % (15-50); MCHC 33.3 g/dL (31.0-37.0); MCV 95.9 fL (80.0-100.0); MONOCYTES 1.8 % (2-11); NEUTROPHILS 85.1 % (40-80); RBC 3.69 10x6/uL (4.00-5.40); RDW 15.6 % (11.5-14.5); WBC 30.2 10x3/uL (4.8-10.8)
[2017-09-08 06:10] LABS: PLATELET COUNT 42 10x3/uL (130-400)
[2017-09-08 06:21] LABS: ANION GAP 16.4 mmol/L (8-16); CALCIUM 8.1 mg/dL (8.5-10.1); CREATININE - SERUM 1.2 mg/dL (0.6-1.3); POTASSIUM - SERUM 4.4 mmol/L (3.5-5.1)
[2017-09-08 07:26] LABS: INR 1.23 (0.85-1.17); PROTIME 15.1 SECONDS (11.6-15.0)
[2017-09-08 08:26] VITALS: BP 119/77
[2017-09-08 16:17] VITALS: BP 123/69
[2017-09-08 20:00] VITALS: BP 107/67
[2017-09-09] VITALS: BP 118/76
[2017-09-09 04:00] VITALS: BP 111/66
[2017-09-09 05:41] LABS: EOSINOPHILS 0 % (0-7); HEMATOCRIT 35.1 % (36.0-48.0); HEMOGLOBIN 11.7 g/dL (12-16); IMMATURE GRANULOCYTES 13.4 % (0-5); LYMPHOCYTES 1.4 % (15-50); MCH 32.1 pg (26.0-34.0); MCHC 33.3 g/dL (31.0-37.0); MCV 96.2 fL (80.0-100.0); MEAN PLATELET VOLUME 13.4 fL (7.4-10.4); MONOCYTES 1.1 % (2-11); NEUTROPHILS 82.1 % (40-80); RBC 3.65 10x6/uL (4.00-5.40); RDW 15.7 % (11.5-14.5)
[2017-09-09 06:11] LABS: WBC 19.9 10x3/uL (4.8-10.8)
[2017-09-09 06:12] LABS: PLATELET COUNT 32 10x3/uL (130-400)
[2017-09-09 06:23] LABS: ANION GAP 17.2 mmol/L (8-16); CALCIUM 8.1 mg/dL (8.5-10.1); CARBON DIOXIDE 20.5 mmol/L (21.0-32.0); CREATININE - SERUM 1.1 mg/dL (0.6-1.3); POTASSIUM - SERUM 4.7 mmol/L (3.5-5.1)
[2017-09-09 08:31] VITALS: BP 121/96
[2017-09-09 16:08] VITALS: BP 103/73
[2017-09-09 20:00] VITALS: BP 102/66
[2017-09-09 23:36] LABS: D-DIMER-QUANTITATIVE 14.51 ug/mLFEU (0.20-0.54)
[2017-09-10] VITALS (23 sets, daily range): BP systolic 78–132; BP diastolic 56–94; Ht 172.7 cm; Wt 111.7 kg
[2017-09-10 05:50] LABS: BASOPHILS 2.5 % (0-2); EOSINOPHILS 0 % (0-7); HEMATOCRIT 33.4 % (36.0-48.0); IMMATURE GRANULOCYTES 19.5 % (0-5); LYMPHOCYTES 4.5 % (15-50); MCH 31.6 pg (26.0-34.0); MCHC 32.9 g/dL (31.0-37.0); NEUTROPHILS 69.5 % (40-80); RBC 3.48 10x6/uL (4.00-5.40); RDW 15.8 % (11.5-14.5)
[2017-09-10 06:20] LABS: ALBUMIN 2.9 g/dL (3.4-5.0); ANION GAP 13.5 mmol/L (8-16); BILIRUBIN - TOTAL 1.28 mg/dL (0.2-1.3); CALCIUM 7.8 mg/dL (8.5-10.1); CARBON DIOXIDE 24.4 mmol/L (21.0-32.0); CREATININE - SERUM 1.2 mg/dL (0.6-1.3); POTASSIUM - SERUM 4.9 mmol/L (3.5-5.1); PROTEIN - SERUM 5.6 g/dL (6.4-8.2)
[2017-09-10 06:40] LABS: WBC 10.6 10x3/uL (4.8-10.8)
[2017-09-10 06:47] LABS: PLATELET COUNT 40 10x3/uL (130-400)
[2017-09-10 09:45] LABS: INR 1.33 (0.85-1.17)
[2017-09-11] VITALS (10 sets, daily range): BP systolic 98–141; BP diastolic 31–91
[2017-09-11 05:46] LABS: BASOPHILS 0.3 % (0-2); EOSINOPHILS 0 % (0-7); HEMATOCRIT 34.8 % (36.0-48.0); HEMOGLOBIN 11.1 g/dL (12-16); IMMATURE GRANULOCYTES 0.5 % (0-5); LYMPHOCYTES 7.5 % (15-50); MCH 31.2 pg (26.0-34.0); MCHC 31.9 g/dL (31.0-37.0); MCV 97.8 fL (80.0-100.0); MONOCYTES 16.8 % (2-11); NEUTROPHILS 74.9 % (40-80); RBC 3.56 10x6/uL (4.00-5.40); RDW 15.8 % (11.5-14.5); WBC 9.6 10x3/uL (4.8-10.8)
[2017-09-11 05:55] LABS: PLATELET COUNT 40 10x3/uL (130-400)
[2017-09-11 06:14] LABS: ALBUMIN 2.9 g/dL (3.4-5.0); BILIRUBIN - TOTAL 0.77 mg/dL (0.2-1.3); CALCIUM 7.8 mg/dL (8.5-10.1); CREATININE - SERUM 2.3 mg/dL (0.6-1.3); PROTEIN - SERUM 5.7 g/dL (6.4-8.2)
== END 2017-09-11 16:02 | DRG 193 ==
LOC: D.ER 07:38 → D.MS 12:01 → D.ICU 12:01 → D.EDHOLD 12:01 → D.MS 13:05 → D.ICU 09-10 01:06
PROVIDERS: Emergency Medicine; Family Medicine; Internal Medicine Medical Oncology; Surgery
PROC: 0BH17EZ Insertion of Endotracheal Airway into Trachea, Via Natural or Artificial Opening (ICD-10-PCS; principal; 2017-09-11)
PROC: 5A09357 Assistance with Respiratory Ventilation, Less than 24 Consecutive Hours, Continuous Positive Airway Pressure (ICD-10-PCS; 2017-09-11)
DX: J18.9 Pneumonia, unspecified organism (principal); J96.01 Acute respiratory failure with hypoxia; N17.0 Acute kidney failure with tubular necrosis; A41.9 Sepsis, unspecified organism; R65.21 Severe sepsis with septic shock; J45.901 Unspecified asthma with (acute) exacerbation; C78.00 Secondary malignant neoplasm of unspecified lung; C78.1 Secondary malignant neoplasm of mediastinum; C79.51 Secondary malignant neoplasm of bone; E87.4 Mixed disorder of acid-base balance; D69.6 Thrombocytopenia, unspecified; I27.20 Pulmonary hypertension, unspecified; C50.919 Malignant neoplasm of unspecified site of unspecified female breast; R79.89 Other specified abnormal findings of blood chemistry; R06.82 Tachypnea, not elsewhere classified; R00.1 Bradycardia, unspecified; I95.9 Hypotension, unspecified